=== PATIENT | female | born 1975 | race Two or more races ===

== ENCOUNTER 2017-01-28 18:25 | Emergency (ER) | payer BC ==
--- NOTE | ~2017-01-28 | ER ---
PATIENT'S NAME: ELISEO DIAS [facility] AGE: 41 Y [address] ROOM: [place] [id number] LOCATION: [facility] ADMIT DATE: 01/28/2017 ER/Outpatient Report DISCHARGE DATE: 01/28/2017 FAMILY PHYSICIAN: Physician, Unknown ATTENDING PHYSICIAN: Faheem Power Time of Arrival: 1821 hours. Time of Evaluation: 1835 hours. CHIEF COMPLAINT: Right-sided facial drooping. HISTORY OF PRESENT ILLNESS: The patient states that when she got in her car this evening, she thought it looked like the right side of her face was drooping. She states she went to [facility] initially, and they did not check her and just sent her right here to be evaluated. She denies any numbness or tingling of her face, denies any pain anywhere, has not been dizzy or lightheaded, has not had a headache, has not had any vision changes. ALLERGIES: NO KNOWN ALLERGIES. CURRENT MEDICATIONS: On the chart and reviewed by me. PAST MEDICAL HISTORY: Hypertension and anemia. FAMILY HISTORY: She states her mom has problems with hypertension and diabetes. Her dad has problems with cardiac issues. PAST SURGERIES: Include kidney stone removal. PASTRY BAKER HISTORY: Last menstrual period was 2 weeks ago. SOCIAL HISTORY: She denies use of tobacco, alcohol, or drugs. REVIEW OF SYSTEMS: All negative other than those mentioned in the HPI. PATIENT'S NAME: ELISEO DIAS [facility] AGE: 41 Y [address] ROOM: [place] [id number] LOCATION: [facility] ADMIT DATE: 01/28/2017 ER/Outpatient Report DISCHARGE DATE: 01/28/2017 FAMILY PHYSICIAN: Physician, Unknown ATTENDING PHYSICIAN: Faheem Power PHYSICAL EXAMINATION: VITAL SIGNS: Weight was 66.7 kg. Blood pressure is 138/83, pulse of 87, respirations 16, temperature of 98.7, O2 sats 99% on room air. GENERAL: She is awake, alert, and oriented x4. SKIN: Lind, warm, and dry. RESPIRATIONS: Even and nonlabored. HEENT: Pupils are equal reactive to light. Extraocular movement is intact. Negative nystagmus. TMs are clear. Nasal is clear. Oropharynx is clear. Smile is even and equal. No drooping of the face is noted. No drooping of the eye. She has equal raising of the eyebrows, able to squint her eyes close tight, able to clench her teeth equally. LUNGS: Lung sounds are clear throughout. HEART: Regular rate and rhythm. ABDOMEN: Soft and nondistended. EXTREMITIES: She walked in with a steady even gait. Moves all extremities strongly and equally. No peripheral edema noted. LABORATORY DATA AND X-RAYS: CBC is within normal limits. Chem panel is within normal limits. Cardiac enzymes are negative. EKG shows sinus rhythm. CT of the head was completed. Radiologist reports no acute abnormality. IMPRESSION: Episode of facial drooping. PLAN: Discussed with the patient. We will allow her to go home. Rest. Continue her current medications. If symptoms continue or worsen, she should return to the ER and follow up with her primary provider in the next 2-3 days. She verbalized understanding. MICHAEL KEITA APRN FOR MD ALAN HIGGINBOTHAM/nadya /[id number] d: 01/29/17 0254 t: 01/31/17 1816, OUTPATIENT REPORT
[2017-01-28 18:45] LABS: BASOPHIL % 0.2 %; EOSINOPHIL # 0.1 K/uL (0.0-0.5); EOSINOPHIL % 0.7 %; HEMATOCRIT 36.8 % (33.0-46.0); HEMOGLOBIN 11.8 g/dL (10.0-15.0); IMMATURE GRANULOCYTE % 0.4 %; LYMPHOCYTE # 2.4 K/uL (0.8-4.0); LYMPHOCYTE % 29.4 %; MCH 26.6 pg (27.0-34.0); MCHC 32.1 gm/dL (32.0-36.5); MCV 83.1 fl (83.0-98.0); MONOCYTE # 0.5 K/uL (0.0-1.0); MONOCYTE % 6.7 %; NEUTROPHIL % 62.6 %; NRBC % 0 /100WBC (0-0.00); PLATELET COUNT 296 K/uL (150-450); RBC 4.43 M/uL (3.50-5.50); RDW-CV 14.8 % (11.9-14.6)
[2017-01-28 18:57] LABS: INR - (THERAPEUTIC) 0.95 (0.92-1.07); PTT 27 SECONDS (25-32)
[2017-01-28 19:08] LABS: ALBUMIN 3.7 gm/dL (3.5-5.0); ALK PHOS 61 IU/L (33-138); ALT 11 IU/L (12-78); ANION GAP 10.5 (10.0-19.0); AST 5 IU/L (10-40); BLOOD UREA NITROGEN 16 mg/dL (6-24); CALCIUM 9.5 mg/dL (8.5-10.5); CHLORIDE 106 mMol/L (96-110); CO2 27 mMol/L (22-32); CPK 39 IU/L (21-215); CREATININE 0.8 mg/dL (0.5-1.1); ESTIMATED GFR (MDRD EQUATION) > 60; POTASSIUM 3.5 mMol/L (3.7-5.1); SODIUM 140 mMol/L (135-145); TOTAL BILIRUBIN 0.4 mg/dL (0.0-1.5); TOTAL PROTEIN 7.4 g/dL (6.0-8.4)
== END 2017-01-28 19:45 | disposition disaster alternative care site (69) ==
LOC: GMED 18:25
PROVIDERS: Nurse Practitioner Family
DX: R29.810 Facial weakness (principal); I10 Essential (primary) hypertension; D64.9 Anemia, unspecified; Z79.899 Other long term (current) drug therapy; Z98.890 Other specified postprocedural states

== ENCOUNTER → 2017-02-20 | Outpatient (CLI) | payer BC | END | disposition disaster alternative care site (69) | LOC: GRAD 01-23 10:45 | DX: Z87.442 Personal history of urinary calculi (principal); Z97.5 Presence of (intrauterine) contraceptive device ==